=== PATIENT | female | born 1935 | race African-American/Black ===

== ENCOUNTER 2019-11-03 20:43 | Emergency (ER) | payer MEDICARE, OTHER ==
[~2019-11-03] VITALS: Ht 165.1 cm; Wt 77.1 kg
[2019-11-03] MEDS ORDERED: Omnipaque-300 100ml vial INJ PRN (21:15)
--- NOTE | 2019-11-03 21:19 | Emergency Room Report ---
History of Present Illness General Chief Complaint: Lower Extremity Injury Source: Patient Present Illness HPI Patient is an 84-year-old female presents after increased right lower extremity pain. At this had gradual onset over the past few days. She had recently had a viral type illness approximately 2 weeks ago. She denies any new swelling. She denies any prior history of heart disease. She states that she is not diabetic. She is currently on Tegretol for trigeminal neuralgia. She denies any other medications other than baby aspirin. Allergies: Uncoded Allergies: SULFA (Allergy, Unknown, 11/03/19) Patient History Past Medical History: see triage record Now: No Reviewed Nursing Documentation: PMH: Agreed; PSxH: Agreed Nursing Documentation-PMH Hx Hypertension: Yes Review of Systems All Other Systems: negative except mentioned in HPI Physical Exam Vital Signs Date Time Temp Pulse Resp B/P (MAP) Pulse Ox O2 Delivery O2 Flow Rate FiO2 11/03/19 20:52 98.2 68 20 127/63 (84) 97 Room Air Sp02 EP Interpretation: reviewed, normal General Appearance: normal inspection, well appearing, no apparent distress, alert, GCS 15 Head: atraumatic ENT: normal ENT inspection, hearing grossly normal, normal voice Neck: normal inspection, full range of motion, supple, no bony tend Respiratory: normal inspection, lungs clear, normal breath sounds, no respiratory distress, no retraction, no wheezing Cardiovascular #1: regular rate, rhythm, no edema Cardiovascular #2: 2+ dorsalis pedis (R), 2+ dorsalis pedis (L) Gastrointestinal: normal inspection, normal bowel sounds, non tender, soft, no guarding, no hernia Musculoskeletal: normal inspection, decreased range of motion Neurologic: alert, motor strength/tone normal, senior application software engineer III-XII nml as tested, oriented x3, responsive, speech normal, normal inspection Psychiatric: normal inspection, judgement/insight normal, mood/affect normal Skin: no rash Medical Decision Making Diagnostic Impression: Primary Impression: Spondylolisthesis at L4-L5 level Additional Impressions: Elevated sed rate Hypertension ER Course She presented for increased right lower extremity discomfort. Differential diagnosis include was not limited to sciatica, peripheral vascular disease, arthritis, among others. Because of complexity of patient's case laboratory tests and imaging studies were ordered. CT of the abdomen pelvis was ordered. Initially ordered this with IV contrast however patient refused contrast. Patient was noted to have some episodes of hypertension and was offered medications for treatment of hypertension. She declined this. Patient also was offered pain medication which she declined. CT imaging of the abdomen pelvis read by radiology showed multiple chronic changes as well as L4-L5 spondylolisthesis vascular calcifications were also noted.. Duplex ultrasound showed no evidence of deep venous thrombosis . See radiology report for full details. Patient was given copy of CT findings. She was advised to follow-up with her primary care physician and physical therapy.Patient was offered admission for control of her hypertension and further work-up with elevated sed rate. Patient declined admission. Patient is advised that she should follow- up as soon as possible with her primary care physician for recheck. She advised to return if any worsening condition if you changed her mind. Labs Test 11/03/19 21:45 White Blood Count 5.3 K/UL (4.8-10.8) Red Blood Count 3.87 M/UL (4.20-5.40) Hemoglobin 12.6 G/DL (12.0-16.0) Hematocrit 35.4 % (37.0-47.0) Mean Corpuscular Volume 92 FL (80-99) Mean Corpuscular Hemoglobin 32.7 PG (27.0-31.0) Mean Corpuscular Hemoglobin Concent 35.7 G/DL (32.0-36.0) Red Cell Distribution Width 9.8 % (11.6-14.8) Platelet Count 333 K/UL (150-450) Mean Platelet Volume 4.8 FL (6.5-10.1) Neutrophils (%) (Auto) 58.6 % (45.0-75.0) Lymphocytes (%) (Auto) 30.8 % (20.0-45.0) Monocytes (%) (Auto) 7.6 % (1.0-10.0) Eosinophils (%) (Auto) 0.7 % (0.0-3.0) Basophils (%) (Auto) 2.4 % (0.0-2.0) Erythrocyte Sedimentation Rate 95 MM/HR (0-30) Prothrombin Time 10.0 SEC (9.30-11.50) Prothromb Time International Ratio 0.9 (0.9-1.1) Activated Partial Thromboplast Time 23 SEC (23-33) Sodium Level 137 MMOL/L (136-145) Potassium Level 4.5 MMOL/L (3.5-5.1) Chloride Level 100 MMOL/L (98-107) Carbon Dioxide Level 29 MMOL/L (21-32) Anion Gap 8 mmol/L (5-15) Blood Urea Nitrogen 14 mg/dL (7-18) Creatinine 0.8 MG/DL (0.55-1.30) Estimat Glomerular Filtration Rate mL/min (>60) Glucose Level 104 MG/DL (74-106) Calcium Level 8.7 MG/DL (8.5-10.1) Total Bilirubin 0.4 MG/DL (0.2-1.0) Aspartate Amino Transf (AST/SGOT) 42 U/L (15-37) Alanine Aminotransferase (ALT/SGPT) 27 U/L (12-78) Alkaline Phosphatase 109 U/L (46-116) Troponin I 0.000 ng/mL (0.000-0.056) Total Protein 9.0 G/DL (6.4-8.2) Albumin 3.6 G/DL (3.4-5.0) Globulin 5.4 g/dL Albumin/Globulin Ratio 0.7 (1.0-2.7) Last Vital Signs Date Time Temp Pulse Resp B/P (MAP) Pulse Ox O2 Delivery O2 Flow Rate FiO2 11/03/19 20:52 98.2 68 20 127/63 (84) 97 Room Air Status: improved Disposition: HOME, SELF-CARE Condition: Stable Grant Lopez MD Nov 03, 2019 21:19
--- NOTE | 2019-11-03 21:27 | NUR ---
ED Nurse Note: Pt brought in to ED from Dr Francois's office with son. Pt c/o 8/ R hip and calf pain today. Pt is A&Ox4, VSS. 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
[2019-11-03 22:07] LABS: BASOPHILS % (AUTO) 2.4 % (0.0-2.0); EOSINOPHILS % (AUTO) 0.7 % (0.0-3.0); HEMATOCRIT 35.4 % (37.0-47.0); HEMOGLOBIN 12.6 G/DL (12.0-16.0); LYMPHOCYTES % (AUTO) 30.8 % (20.0-45.0); MEAN CORPUSCULAR VOLUME 92 FL (80-99); MONOCYTES % (AUTO) 7.6 % (1.0-10.0); NEUTROPHILS % (AUTO) 58.6 % (45.0-75.0); PLATELET COUNT 333 K/UL (150-450); RED BLOOD COUNT 3.87 M/UL (4.20-5.40); RED CELL DISTRIBUTION WIDTH 9.8 % (11.6-14.8); WHITE BLOOD COUNT 5.3 K/UL (4.8-10.8)
[2019-11-03 22:20] LABS: INR 0.9 (0.9-1.1)
[2019-11-03 22:22] LABS: ANION GAP 8 mmol/L (5-15); BLOOD UREA NITROGEN 14 mg/dL (7-18); CALCIUM 8.7 MG/DL (8.5-10.1); CARBON DIOXIDE 29 MMOL/L (21-32); CHLORIDE 100 MMOL/L (98-107); CREATININE 0.8 MG/DL (0.55-1.30); POTASSIUM 4.5 MMOL/L (3.5-5.1); SODIUM 137 MMOL/L (136-145)
--- NOTE | 2019-11-03 22:25 | NUR ---
ED Nurse Note: US at bedside
[2019-11-03 22:27] LABS: ALANINE AMINOTRANSFERASE 27 U/L (12-78); ALBUMIN 3.6 G/DL (3.4-5.0); ALBUMIN/GLOBULIN RATIO 0.7 (1.0-2.7); ALKALINE PHOSPHATASE 109 U/L (46-116); ASPARTATE AMINO TRANSFERASE 42 U/L (15-37); BILIRUBIN,TOTAL 0.4 MG/DL (0.2-1.0)
--- NOTE | 2019-11-03 23:32 | Diagnostic Imaging Report ---
Indication: Bilateral leg pain Technique: Grayscale and duplex images of the bilateral lower extremity veins Comparison: none Findings: Bilaterally, grayscale and duplex images demonstrate no evidence of intraluminal thrombus. Normal phasic Doppler waveforms, demonstrating normal augmentation response and no evidence of valvular insufficiency. Normal compressibility Impression: Negative for lower extremity deep venous thrombosis This agrees with the preliminary interpretation provided overnight by [facility].
--- NOTE | 2019-11-04 | NUR ---
ED Nurse Note: Pt resting in bed, side laying, Pt BP is 200/78, refusing BP medication or pain medication. ERMD aware. Pt awaiting discharge orders
[2019-11-04 00:45] VITALS: BP 127/63
--- NOTE | 2019-11-04 00:45 | NUR ---
ER DISCHARGE NOTE: Patient is cleared to be discharged per ERMD, pt is aox4, on room air, with stable vital signs. pt was given dc and prescription instructions, pt was able to verbalize understanding, pt id band and iv site removed without complications. pt brought to private vehicle in . pt took all belongings.
--- NOTE | 2019-11-04 15:10 | Diagnostic Imaging Report ---
Indication: Pain Technique: Spiral acquisitions obtained through the abdomen and pelvis. No oral contrast utilized, per emergency room physician request No IV contrast utilized, per referring physician request.. Multiplanar reconstructions were generated. Total dose length product 1665 mGycm. CTDIvol(s) 30 mGy. Dose reduction achieved using automated exposure control Comparison: None Findings: The appendix is normal. There is colonic diverticulosis. No evidence of acute diverticulitis. No small bowel distention. No free or loculated intraperitoneal gas or fluid is evident. The distal esophagus, stomach, duodenum are unremarkable. The lack of IV contrast limits assessment of the solid organs. The liver, gallbladder, bile ducts, pancreas, spleen, adrenals, kidneys are unremarkable. Renal pelvic calcifications are probably arterial. No definite renal or ureteral calculi, hydronephrosis, or hydroureter demonstrated. No pelvic mass or adenopathy. Uterus and adnexal structures are unremarkable. The bladder is somewhat distended. The included lung bases are clear. The bones demonstrate a compression fracture deformity of the T10 vertebral body, resulting in approximately 40% height loss. There is anterior offset of L4 on L5 and of L5 on S1. There is transitional lumbosacral anatomy. Impression: No definite acute abnormality Colonic diverticulosis. No evidence of diverticulitis T10 vertebral body compression fracture, age-indeterminate. Consider MRI for better characterization if there is high clinical suspicion Degenerative spondylosis changes This agrees with the preliminary interpretation provided overnight by [facility]. The CT scanner at [facility] is accredited by the [employer] and the scans are performed using protocols designed to limit radiation exposure to as low as reasonably achievable to attain images of sufficient resolution adequate for diagnostic evaluation.
== END 2019-11-04 00:45 | disposition home or self-care (01) ==
LOC: EMR 21:45
DX: M43.16 Spondylolisthesis, lumbar region (principal); I10 Essential (primary) hypertension; R70.0 Elevated erythrocyte sedimentation rate; Z88.2 Allergy status to sulfonamides
CPT/HCPCS: 36415; 74176; 80053; 84484; 85025; 85610; 85651; 85730; 93931; 93970; 99284